=== PATIENT | male | born 1990 | race Caucasian/White ===

== ENCOUNTER 2017-01-28 09:50 | Emergency (ER) | payer OTHER ==
[~2017-01-28] VITALS: Ht 182.9 cm; Wt 92.7 kg
[2017-01-28 09:50] VITALS: BP 136/88
[2017-01-28] MEDS ORDERED: IBUPROFEN 600 MG TAB PO ONE (10:30)
--- NOTE | 2017-01-28 10:57 | REP ---
CT of the brain without IV contrast: There are no comparisons. There is no subdural or epidural hematoma. There is no hemorrhage, edema, mass effect or midline shift. The ventricles are normal size and midline. The visualized paranasal sinuses and mastoids are unremarkable. Impression: Negative CT study of the brain. Signed by Juan Barroso MD 01/28/2017 10:48 A
--- NOTE | 2017-01-28 11:02 | REP ---
Maxillofacial CT: Axial images are acquired helical scanning and are reformatted in sagittal and coronal projections. There is a fracture in the floor of the left orbit/superior wall of the left maxillary sinus. There is a comminuted fracture of the anterior wall of the left maxillary sinus. There is an air-fluid level in the left maxillary sinus. The ocular lenses and globes are unremarkable. The orbital fat planes are unremarkable. There is no nasal bone fracture. No left orbit fracture. No left side pneumatic arch fracture. The frontal sinuses and ethmoid sinuses are unremarkable. The sphenoid sinuses and mastoid air cells are unremarkable. No mandible fracture is identified. Impression: There is a fracture of the floor of the left orbit/superior wall of the left maxillary sinus. There is a comminuted fracture of the anterior wall of the left maxillary sinus. There is an air-fluid level in the left maxillary sinus. There is no zygomatic arch fracture on the right on the left. The ocular lenses and globes the orbital fat planes are unremarkable. There is no zygomatic arch fracture. No mandible fracture. Signed by Juan Barroso MD 01/28/2017 10:54 A
[2017-01-28] MEDS ORDERED: AFRI0.0511 (11:45)
[2017-01-28] MEDS ORDERED: AUGM875T28 PO (11:45)
[2017-01-28] MEDS ORDERED: PSEUDOEPHEDRINE 30 MG TAB PO PRN (11:45)
[2017-01-28] MEDS ORDERED: SUDA30TA PO (11:45)
[2017-01-28] MEDS ORDERED: AUGMENTIN 875 MG TAB PO ONE (11:45)
== END 2017-01-28 11:53 | disposition home or self-care (01) ==
LOC: M ED 09:50
DX: S02.32XA Fracture of orbital floor, left side, initial encounter for closed fracture (principal); S02.401A Maxillary fracture, unspecified side, initial encounter for closed fracture; Y04.8XXA Assault by other bodily force, initial encounter; Y92.9 Unspecified place or not applicable; Y93.9 Activity, unspecified; Y99.9 Unspecified external cause status